=== PATIENT | male | born 1995 | race Caucasian/White ===

== ENCOUNTER 2025-02-08 14:26 | Emergency (ER) | payer OTHER ==
[2025-02-08] MEDS ORDERED: Acetaminophen 500 MG TAB ONE (14:39)
== END 2025-02-08 15:15 | disposition home or self-care (01) ==
LOC: MADERS 14:26
DX: S50.11XA Contusion of right forearm, initial encounter (principal); F17.200 Nicotine dependence, unspecified, uncomplicated; W20.8XXA Other cause of strike by thrown, projected or falling object, initial encounter
CPT/HCPCS: 99283